=== PATIENT | female | born 1990 | race Hispanic/Latino ===

== ENCOUNTER 2024-07-29 02:08 | Inpatient (IN) | payer BC, OTHER ==
[2024-07-29 02:32] VITALS: BMI 37.5
[2024-07-29] MEDS: Lactated Ringer's 1,000 ML IV SCH (03:20)
[2024-07-29 03:36] LABS: Hematocrit 36.1 % (34.9-44.5); Hemoglobin 12.1 g/dL (12.0-15.5); Mean Corpuscular HGB CONC 33.5 g/dL (32.0-36.0); Mean Corpuscular Hemoglobin 29.2 pg (27.0-33.0); Mean Corpuscular Volume 87.2 fL (81.6-98.3); Mean Platelet Volume 10.9 fL (7.4-10.4); Platelet Count 237 10x3/uL (150-450); RBC Distribution Width 14.1 % (11.5-14.5); Red Blood Cell (RBC) Count 4.14 10x6/uL (3.90-5.03); White Blood Cell (WBC) Count 6.74 10x3/uL (3.5-10.5)
[2024-07-29] MEDS ORDERED: Promethazine HCl 25 MG/ML VIAL IM PRN ×3 (03:45→10:14)
[2024-07-29] MEDS ORDERED: hydrALAZINE 20 MG/ML VIAL SLOW IVP PRN ×2 (03:45→10:14)
[2024-07-29] MEDS ORDERED: Diphenoxylate HCl/Atropine Tablet PO PRN ×2 (03:45)
[2024-07-29] MEDS ORDERED: Carboprost 250 MCG/ML AMP IM PRN (03:45)
[2024-07-29] MEDS ORDERED: Ondansetron PF 4 MG/2 ML Vial IVP PRN ×3 (03:45→10:14)
[2024-07-29] MEDS ORDERED: Lidocaine 1% (PF) 30 ML VIAL SC PRN (03:45)
[2024-07-29] MEDS ORDERED: Acetaminophen 500 MG TAB PO PRN (03:45)
[2024-07-29] MEDS ORDERED: Methylergonovine 0.2 MG/ML VIAL IM PRN (03:45)
[2024-07-29] MEDS ORDERED: HYDROcodone/Acetaminophen 5/325 mg Tablet PO PRN ×3 (03:45→10:14)
[2024-07-29] MEDS ORDERED: Misoprostol 200 MCG TAB RC PRN (03:45)
[2024-07-29] MEDS: fentaNYL/Ropivacaine Epidural 100 ML ONE (04:05)
[2024-07-29 04:15] LABS: Syphilis Antibody Nonreactive (Nonreactive); Syphilis Antibody Index 0.04 S/CO (<1.00 Non-Reactive)
[2024-07-29 04:16] LABS: Hep B Surf Ag - L&D Non-Reactive S/CO (NonReactive)
[2024-07-29] MEDS ORDERED: Moisturizing Cream (Eucerin) 113 GM JAR TOP PRN (04:18)
[2024-07-29] MEDS ORDERED: Acetaminophen 325 MG TAB PO PRN (04:18)
[2024-07-29] MEDS ORDERED: Naloxone HCl 0.4 mg/ml Vial IVP PRN ×2 (04:18)
[2024-07-29] MEDS ORDERED: diphenhydrAMINE 50 MG/ML VIAL IVP PRN (04:18)
[2024-07-29] MEDS: ePHEDrine Sulfate 50 MG/10 ML VIAL SLOW IVP PRN (04:26)
[2024-07-29] MEDS ORDERED: fentaNYL 2 mcg/Ropivacaine 0.2% Epidural 100 ML CADD EPIDURAL SCH (04:30)
[2024-07-29] MEDS ORDERED: Communication Order-Pharmacy FS SCH (04:30)
[2024-07-29] MEDS ORDERED: Lactated Ringer's 500 ML IV PRN (04:41)
[2024-07-29] MEDS ORDERED: Tranexamic Acid 1,000 MG/10 ML VIAL IVP PRN (04:43)
[2024-07-29] MEDS: Oxytocin 30 units/NS 500 ML 500 ML IVPB SCH (07:59)
[2024-07-29] MEDS ORDERED: Bupivacaine 0.25% HCL 30 ML VIAL ONE (08:00)
[2024-07-29] MEDS ORDERED: ePHEDrine Sulfate 50 MG/10 ML VIAL ONE (08:00)
[2024-07-29] MEDS: Ibuprofen 800 MG TAB PO PRN (10:13)
[2024-07-29] MEDS ORDERED: Lanolin Ointment 7 GM TUBE TOP PRN (10:14)
[2024-07-29] MEDS ORDERED: Milk Of Magnesia 30 ML UDCUP PO PRN (10:14)
[2024-07-29] MEDS ORDERED: diphenhydrAMINE 25 MG CAP PO PRN (10:14)
[2024-07-29] MEDS ORDERED: Bisacodyl 10 MG SUPP PR PRN (10:14)
[2024-07-29] MEDS: Prenatal Vitamin 1 TAB PO SCH (10:29)
[2024-07-29] MEDS: Docusate 100 MG CAP PO SCH ×2 (10:30→21:19)
[2024-07-29] MEDS: Boostrix 0.5 ML (Tdap) VIAL (>/=7 yrs of age) IM ONE (10:30)
[2024-07-29] MEDS: Benzocaine-Menthol 82.5 ML CAN TOP PRN (10:30)
[2024-07-29] MEDS: Ferrous Sulfate 325 MG TAB PO SCH (10:30)
[2024-07-29] MEDS: Ibuprofen 800 MG TAB PO SCH (17:35)
[2024-07-30 08:40] VITALS: BP 105/59; TEMP 98.1
[2024-07-30] MEDS: Prenatal Vitamin 1 TAB PO SCH (08:51)
== END 2024-07-30 18:25 | disposition home or self-care (01) | DRG 807 ==
LOC: CSHLD/OP 02:08 → CSHLD 02:44 → CSHPP 10:36
PROVIDERS: ADMIT Family Medicine; ATTEND Family Medicine
PROC: 10E0XZZ Delivery of Products of Conception, External Approach (ICD-10-PCS; principal; 2024-07-29)
PROC: 0UQMXZZ Repair Vulva, External Approach (ICD-10-PCS; 2024-07-29)
DX: O71.82 Other specified trauma to perineum and vulva (principal); Z37.0 Single live birth; Z3A.39 39 weeks gestation of pregnancy
CPT/HCPCS: 36415; 51702; 85027; 86780; 86850; 86900; 86901; 87340; 99285; J0665; J2590; J7120